=== PATIENT | female | born 2000 | race African-American/Black ===

== ENCOUNTER 2021-03-29 21:32 | Emergency (ER) | payer OTHER ==
[2021-03-29 21:38] VITALS: BP 101/68; PULSE 84; TEMP 97; BMI 42.4
[2021-03-29] MEDS ORDERED: IBUPROFEN 600 MG TABLET (FP) PO ONE ×2 (23:18→23:46)
== END 2021-03-29 23:51 | disposition home or self-care (01) ==
LOC: JERFT 21:32
DX: B02.7 Disseminated zoster (principal)
CPT/HCPCS: 99283-25

== ENCOUNTER 2024-04-14 16:26 | Emergency (ER) | payer OTHER ==
[2024-04-14 16:50] VITALS: BP 120/72; PULSE 84; RESP 17; TEMP 98.5; BMI 44.0
[2024-04-14] MEDS ORDERED: FAMOTIDINE 20 MG TABLET ONE (18:20)
[2024-04-14] MEDS ORDERED: MAG HYDROX/AL HYDROX/SIMETH 30 ML UNIT-DOSE CUP ONE (18:20)
[2024-04-14] MEDS: MAG HYDROX/AL HYDROX/SIMETH -MYLANTA- ORAL SUSPENSION PO ONE (18:57)
[2024-04-14] MEDS: FAMOTIDINE 20 MG TABLET PO ONE (18:58)
[2024-04-14 18:59] LABS: EPI CELLS 11 /uL (0-25.1); HYALINE CASTS 1 /uL (0-3.1); PH,URINE 6.5 (5.0-8.0); URINE APPEARANCE CLEAR; URINE BACTERIA 27 /uL (0-1359); URINE BILIRUBIN NEGATIVE (NEGATIVE); URINE COLOR YELLOW; URINE GLUCOSE (UA) NEGATIVE (NEGATIVE); URINE KETONE TRACE (NEGATIVE); URINE LEUK ESTERASE NEGATIVE (NEGATIVE); URINE NITRITE NEGATIVE (NEGATIVE); URINE PROTEIN NEGATIVE (NEGATIVE); URINE RBC 23 /uL (0-23.9); URINE WBC 5 /uL (0-25.8)
[2024-04-16 14:04] LABS: HCG,QUALITATIVE URINE Negative
== END 2024-04-14 20:15 | disposition home or self-care (01) ==
LOC: JER 16:26
DX: R10.9 Unspecified abdominal pain (principal); M54.9 Dorsalgia, unspecified; R07.9 Chest pain, unspecified; R11.0 Nausea; Z20.822 Contact with and (suspected) exposure to COVID-19
CPT/HCPCS: 0241U-QW; 81003; 84703; 87086; 93005; 93010; 99284-25